=== PATIENT | female | born 1980 | race Caucasian/White ===

== ENCOUNTER → 2016-08-23 | Outpatient (CLI) | payer BC ==
[~2016-08-23] MED LIST: CELEXA10 MG PO; CYMBALTA 60MG60 MG PO; IBUPROFEN800 MG PO; LAMICTAL100 MG PO; LATUDA20 MG PO; LORTAB 10/500 51 TAB PO; MEPEREDINE50 MG PO; NEURONTIN300 MG/CAP PO; NORCO 325 MG-7.1 TAB PO; PREDNISONE20 MG PO; VICODIN 5/5001 UDTAB PO; VIVLODEX10 MG PO; XANAX 1MG1 MG PO; XANAX0.5 MG PO; XANAX1 MG PO; ZOFRAN ODT4 MG PO; ZOFRAN4 M1 PO; ZOLOFT100 MG PO
== END ==
LOC: MHCPAIN 10:00
DX: G89.29 Other chronic pain (principal); M54.12 Radiculopathy, cervical region; M50.90 Cervical disc disorder, unspecified, unspecified cervical region; M12.88 Other specific arthropathies, not elsewhere classified, other specified site
CPT/HCPCS: G0463

== ENCOUNTER → 2016-08-31 | Outpatient (CLI) | payer BC | LOC: MHCPAIN 07:52 | DX: M50.13 Cervical disc disorder with radiculopathy, cervicothoracic region (principal) | CPT/HCPCS: G0463; J1100; Q9967 ==

== ENCOUNTER → 2016-09-27 | Outpatient (CLI) | payer BC | LOC: MHCPAIN 10:47 | DX: G89.29 Other chronic pain (principal); M50.90 Cervical disc disorder, unspecified, unspecified cervical region; M54.12 Radiculopathy, cervical region | CPT/HCPCS: G0463 ==

== ENCOUNTER → 2016-12-27 | Outpatient (CLI) | payer BC | LOC: MHCPAIN 12:14 | DX: G89.29 Other chronic pain (principal); M50.90 Cervical disc disorder, unspecified, unspecified cervical region; M54.12 Radiculopathy, cervical region; Z87.891 Personal history of nicotine dependence | CPT/HCPCS: G0463 ==

== ENCOUNTER → 2016-12-28 | Outpatient (CLI) | payer BC | LOC: MHCPAIN 08:05 | DX: M50.90 Cervical disc disorder, unspecified, unspecified cervical region (principal) | CPT/HCPCS: J1040; J1100; Q9967 ==

== ENCOUNTER 2017-04-29 08:15 | Emergency (ER) | payer BC ==
[~2017-04-29] VITALS: Ht 152.4 cm; Wt 70.5 kg
[~2017-04-29 08:15] MED LIST changes: -CELEXA10 MG PO; -NORCO 325 MG-7.1 TAB PO; -ZOFRAN ODT4 MG PO
[2017-04-29 08:17] VITALS: BP 141/71; TEMP 99.2
[2017-04-29] MEDS ORDERED: NORCO 325 MG-7.1 TAB PO ×2 (08:29→11:19)
[2017-04-29] MEDS ORDERED: CELEXA10 MG PO (08:32)
[2017-04-29] MEDS ORDERED: ZOFRAN ODT4 MG PO (11:19)
[2017-04-29 11:27] VITALS: PULSE 77
== END 2017-04-29 11:28 | disposition home or self-care (01) ==
LOC: COL.ER 08:15
DX: M54.5 Low back pain (principal); M79.604 Pain in right leg; M79.605 Pain in left leg; G58.8 Other specified mononeuropathies; F17.210 Nicotine dependence, cigarettes, uncomplicated; Z87.39 Personal history of other diseases of the musculoskeletal system and connective tissue
CPT/HCPCS: J1170; J1885; J2550